=== PATIENT | female | born 1950 ===

== ENCOUNTER 2023-11-22 07:45 | Inpatient (IN) | payer OTHER ==
[~2023-11-22] VITALS: Ht 162.6 cm; Wt 108.9 kg
[2023-11-22 09:19] LABS: HEMATOCRIT 40.8 % (36.0-45.00); HEMOGLOBIN 13.2 g/dL (12.0-15.00); MEAN CORPUSCULAR HEMOGLOBIN 27.2 pg (27.00-32.0); MEAN CORPUSCULAR HGB CONC 32.3 g/dl (32.0-36.0); PLATELET COUNT 210 K/uL (150-450); RED BLOOD COUNT 4.86 M/uL (4.00-6.00); RED CELL DISTRIBUTION WIDTH 13.6 % (11.5-14.5)
[2023-11-22 09:22] LABS: PH,URINE 5.5 (5.0-8.0); URINE APPEARANCE Clear; URINE BILIRRUBIN Negative (NEGATIVE); URINE BLOOD Trace; URINE COLOR Yellow; URINE GLUCOSE Negative (NEGATIVE); URINE LEUKOCYTE Negative; URINE NITRATE Negative; URINE PROTEIN Negative (NEGATIVE); URINE UROBILINOGEN 0.2 E.U./dl
[2023-11-22 09:23] LABS: URINE BACTERIA 1012.8 uL (0.0-1933); URINE EPITHELIAL CELLS 19.1 uL (0.0-38.8); URINE RBC 11.6 uL (0.0-20.8); URINE WBC 9.5 uL (0.0-23.2)
[2023-11-22] MEDS ORDERED: VALSARTAN80 MG PO (09:31)
[2023-11-22] MEDS ORDERED: ZOLOFT100 MG PO (09:31)
[2023-11-22 10:04] LABS: ALBUMIN 3.7 gm/dL (3.4-5.0); BILIRUBIN TOTAL 0.6 mg/dL (0.3-1.2); CALCIUM 9.1 mg/dL (8.5-10.1); CREATININE SERUM 0.51 mg/dL (0.55-1.02); GFR 118.21; GLOBULINA 3.2 G/DL (2.4-3.5); POTASSIUM 4.87 mEq/L (3.5-5.1); TOTAL PROTEIN 6.9 gm/dL (6.4-8.2)
[2023-11-22 10:17] LABS: INR 1.13; PARTIAL THROMBOPLASTIN TIME 30.1 SECONDS (22.0-34.0); PROTHROMBIN TIME 11.8 SECONDS (9.0-11.5)
[2023-11-27] MEDS ORDERED: MORPHINE SULFATE 4 MG/ML CARTRIDGE IV ONE (11:00)
[2023-11-27] MEDS ORDERED: VANCOMYCIN HCL 1,000 MG VIAL IR ONE (11:00)
[2023-11-27] MEDS ORDERED: TRANEXAMIC ACID 100MG/1ML (1000MG) AMPUL IV ONE ×2 (11:00)
[2023-11-27] MEDS ORDERED: BUPIVACAINE HCL 30 ML VIAL IJ ONE (11:00)
[2023-11-27] MEDS ORDERED: LIDOCAINE HCL 1%/EPINEPHRINE 20ML VIAL IJ ONE (11:00)
[2023-11-27] MEDS ORDERED: POLYMYXIN B SULFATE 500,000 U VIAL IR ONE (11:00)
[2023-11-27] MEDS ORDERED: POVIDONE-IODINE 118 ML BOTT TOP ONE (11:00)
[2023-11-27] MEDS ORDERED: ISOPROPYL ALCOHOL 30 ML OUNCE TOP ONE (11:00)
[2023-11-27] MEDS ORDERED: CEFAZOLIN SODIUM 1,000 MG VIAL IV ONE (12:00)
[2023-11-27] MEDS ORDERED: METHYLPREDNISOLONE ACETATE 80 MG/ML VIAL ONE (13:23)
[2023-11-27] MEDS ORDERED: METHYLPREDNISOLONE ACETATE 80 MG/ML VIAL IU ONE (13:30)
[2023-11-27] MEDS ORDERED: KETOROLAC TROMETHAMINE 60 MG VIAL IM ONE (13:45)
[2023-11-27] MEDS ORDERED: SODIUM CHLORIDE 0.45 % 1,000 ML IV SCH (14:00)
[2023-11-27] MEDS ORDERED: MORPHINE SULFATE 2 MG/ML CARTRIDGE IV NR (14:00)
[2023-11-27] MEDS ORDERED: ONDANSETRON HCL 2 MG/ML VIAL IV PRN (14:00)
[2023-11-27] MEDS ORDERED: MORPHINE SULFATE 4 MG/ML CARTRIDGE IV PRN (14:00)
[2023-11-27 15:51] LABS: HEMOGLOBIN 12.1 g/dL (12.0-15.00); RED BLOOD COUNT 4.39 M/uL (4.00-6.00)
[2023-11-27] MEDS ORDERED: CEFAZOLIN SODIUM 1,000 MG VIAL ONE (16:59)
[2023-11-27] MEDS ORDERED: CEFAZOLIN SODIUM 1,000 MG VIAL IV SCH (18:00)
[2023-11-27] MEDS ORDERED: GENTAMICIN SULFATE 40 MG/ML VIAL IV SCH (21:00)
[2023-11-28 01:34] LABS: HEMATOCRIT 35.9 % (36.0-45.00); HEMOGLOBIN 11.8 g/dL (12.0-15.00); MEAN CELL VOLUME 83.1 fL (80.00-100.00); MEAN CORPUSCULAR HEMOGLOBIN 27.2 pg (27.00-32.0); MEAN CORPUSCULAR HGB CONC 32.8 g/dl (32.0-36.0); PLATELET COUNT 187 K/uL (150-450); RED BLOOD COUNT 4.32 M/uL (4.00-6.00); RED CELL DISTRIBUTION WIDTH 13.9 % (11.5-14.5)
[2023-11-28] MEDS ORDERED: OxyCODONE HCL/APAP UD (PERCOCET) PO PRN (08:30)
[2023-11-28] MEDS ORDERED: SENNA/DOCUSATE SODIUM 1 TAB TABLET PO SCH (09:00)
[2023-11-28] MEDS ORDERED: OxyCODONE HCL ER 10MG TAB (OxyCONTIN) PO SCH (09:00)
[2023-11-28] MEDS ORDERED: RIVAROXABAN 10 MG TAB PO SCH (09:00)
[2023-11-28] MEDS ORDERED: SULFAMETHOXAZOLE/TRIMETHOPRIM DS 1 TAB PO SCH (09:00)
[2023-11-28] MEDS ORDERED: BACITRACIN 28.35 GM OINT.TUBE TOP SCH (09:00)
[2023-11-28] MEDS ORDERED: IRON FUM,PS/FOLIC/BCOMP,C NO.9 1 CAP CAPSULE PO SCH (09:00)
[2023-11-28] MEDS ORDERED: ENALAPRILAT DIHYDRATE 1.25 MG/ML VIAL IV PRN (14:30)
[2023-11-29 02:37] LABS: HEMATOCRIT 31.9 % (36.0-45.00); HEMOGLOBIN 10.4 g/dL (12.0-15.00); MEAN CELL VOLUME 83.1 fL (80.00-100.00); MEAN CORPUSCULAR HEMOGLOBIN 27.1 pg (27.00-32.0); MEAN CORPUSCULAR HGB CONC 32.7 g/dl (32.0-36.0); PLATELET COUNT 184 K/uL (150-450); RED BLOOD COUNT 3.84 M/uL (4.00-6.00); RED CELL DISTRIBUTION WIDTH 14.1 % (11.5-14.5)
[2023-11-29] MEDS ORDERED: Septra Ds Tablet PO (08:17)
[2023-11-29] MEDS ORDERED: XARELTO10 MG PO (08:17)
[2023-11-29] MEDS ORDERED: INTEGRA PLUS C1 EACH PO (08:17)
[2023-11-29] MEDS ORDERED: TRAM1TAB98 PO (08:17)
[2023-11-29] MEDS ORDERED: VALSARTAN 80 MG PO SCH (09:00)
== END 2023-11-29 14:40 | disposition home or self-care (01) | DRG 470 ==
LOC: O/R 11-27 06:30 → OB/GYN 11-27 06:30 → SURG-SUITE 12-03 07:45
PROVIDERS: ADMIT Orthopaedic Surgery Sports Medicine; ATTEND Orthopaedic Surgery Sports Medicine
PROC: 0SRC0J9 Replacement of Right Knee Joint with Synthetic Substitute, Cemented, Open Approach (ICD-10-PCS; principal; 2023-11-27 10:30)
DX: M17.11 Unilateral primary osteoarthritis, right knee (principal)